=== PATIENT | female | born 1955 | race Caucasian/White ===

== ENCOUNTER → 2016-09-16 | Outpatient (CLI) | payer MEDICARE, OTHER ==
[~2016-09-16] MED LIST: ASPIRIN 325MG325 MG PO; CALTRATE 600 +1 EAC1 PO; ENDUR-ACIN500 MG PO; ENSURE LIQUID237 ML PO; ENSURE ORIGINA237 ML PO; ICLUSIG15 MG PO; K-DUR TAB 20 M20 MEQ PO; LEVAQUIN500 MG PO; LISINOPRIL40 MG PO; MAG-OX 400 TAB400 MG PO; MEGACE SUSP40 MG/M1 PO; METOPROLOL SUCC25 MG PO; NORVASC 5 MG TAB5 MG PO; PROAIR HFA8.5 GM INH; SERTRALINE HCL100 MG PO; TASIGNA200 MG PO; TENORMIN 25 MG25 MG PO; TYLENOL 325MG325 MG PO; VITAMIN D 11000 UNIT PO; ZOVIRAX 200 MG200 MG PO
[2016-09-16 12:06] LABS: HEMOGLOBIN 8.8 gm/dl (12.3-15.3)
== END ==
LOC: EROP 11:01
PROVIDERS: Internal Medicine Hematology & Oncology
DX: C92.10 Chronic myeloid leukemia, BCR/ABL-positive, not having achieved remission (principal); D64.9 Anemia, unspecified; Z88.0 Allergy status to penicillin
CPT/HCPCS: 85014; 85018; 85049

== ENCOUNTER → 2016-09-21 | Outpatient (CLI) | payer MEDICARE, OTHER ==
[~2016-09-21] VITALS: Ht 162.6 cm; Wt 50.3 kg
[2016-09-21 11:50] LABS: HEMOGLOBIN 7.3 gm/dl (12.3-15.3)
== END ==
LOC: OPSV 11:09
PROVIDERS: Internal Medicine Hematology & Oncology
DX: D64.9 Anemia, unspecified (principal); Z88.0 Allergy status to penicillin
CPT/HCPCS: 36415; 36430; 36591; 36592; 85014; 85018; 85049; 86850; 86900; 86901; 86920; 96374; 96375; J1940; J7050; P9037; P9040; Q0163

== ENCOUNTER → 2016-10-01 | Outpatient (CLI) | payer MEDICARE, OTHER ==
[~2016-10-01] VITALS: Ht 162.6 cm; Wt 50.3 kg
[2016-10-01 12:39] LABS: HEMOGLOBIN 7.6 gm/dl (12.3-15.3)
== END ==
LOC: OPSV 11:37
PROVIDERS: Internal Medicine Hematology & Oncology
DX: D64.9 Anemia, unspecified (principal); C92.10 Chronic myeloid leukemia, BCR/ABL-positive, not having achieved remission
CPT/HCPCS: 36430; 36592; 85014; 85018; 85025; 85049; 86850; 86900; 86901; 86920; 96374; J1940; J7050; P9040; Q0163

== ENCOUNTER → 2016-11-08 | Outpatient (CLI) | payer MEDICARE, OTHER ==
[~2016-11-08] VITALS: Ht 162.6 cm; Wt 50.3 kg
== END ==
LOC: OPSV 14:24
DX: C92.10 Chronic myeloid leukemia, BCR/ABL-positive, not having achieved remission (principal)
CPT/HCPCS: 36430; 36592; 85007; 85027; 86850; 86900; 86901; 86920; 96374; 96375; J1940; J7050; P9037; P9040; Q0163

== ENCOUNTER 2016-11-09 00:47 | Emergency (ER) | payer MEDICARE, OTHER ==
[~2016-11-09 00:47] MED LIST changes: -ENSURE LIQUID237 ML PO; -ENSURE ORIGINA237 ML PO; -ICLUSIG15 MG PO; -K-DUR TAB 20 M20 MEQ PO; -LEVAQUIN500 MG PO; -MAG-OX 400 TAB400 MG PO; -MEGACE SUSP40 MG/M1 PO; -METOPROLOL SUCC25 MG PO; -PROAIR HFA8.5 GM INH; -SERTRALINE HCL100 MG PO; -TYLENOL 325MG325 MG PO; -ZOVIRAX 200 MG200 MG PO
[2016-11-09 03:54] LABS: BUN/CREATININE RATIO 14 (0-10)
[2016-11-09 03:55] LABS: HEMOGLOBIN 8.5 gm/dl (12.3-15.3); RED BLOOD COUNT 2.88 M/UL (4.00-5.10); WHITE BLOOD COUNT 56.9 K/UL (4.5-11.0)
[2017-03-10] MEDS ORDERED: MAG-OX 400 TAB400 MG PO (01:50)
[2017-03-10] MEDS ORDERED: ZOVIRAX 200 MG200 MG PO (01:51)
[2017-03-10] MEDS ORDERED: METOPROLOL SUCC25 MG PO (01:51)
[2017-03-10] MEDS ORDERED: SERTRALINE HCL100 MG PO (01:51)
[2017-03-10] MEDS ORDERED: K-DUR TAB 20 M20 MEQ PO (01:52)
[2017-03-10] MEDS ORDERED: ICLUSIG15 MG PO (02:38)
[2017-03-12] MEDS ORDERED: MEGACE SUSP40 MG/M1 PO (14:59)
[2017-03-12] MEDS ORDERED: ENSURE LIQUID237 ML PO (15:00)
[2017-03-25] MEDS ORDERED: PROAIR HFA8.5 GM INH (22:36)
[2017-03-27] MEDS ORDERED: ENSURE ORIGINA237 ML PO (12:49)
[2017-03-27] MEDS ORDERED: LEVAQUIN500 MG PO (12:51)
[2017-03-27] MEDS ORDERED: TYLENOL 325MG325 MG PO (12:53)
== END 2016-11-09 04:53 | disposition other institution (70) ==
LOC: ER1 00:47
PROVIDERS: Family Medicine
DX: S06.6X0A Traumatic subarachnoid hemorrhage without loss of consciousness, initial encounter (principal); S06.4X0A Epidural hemorrhage without loss of consciousness, initial encounter; S02.32XA Fracture of orbital floor, left side, initial encounter for closed fracture; S02.40DA Maxillary fracture, left side, initial encounter for closed fracture; S50.312A Abrasion of left elbow, initial encounter; C92.10 Chronic myeloid leukemia, BCR/ABL-positive, not having achieved remission; D64.9 Anemia, unspecified; E87.6 Hypokalemia; Z88.0 Allergy status to penicillin; W18.11XA Fall from or off toilet without subsequent striking against object, initial encounter
CPT/HCPCS: 36415; 70450; 70486; 80053; 85007; 85027; 85610; 93005; 99285

== ENCOUNTER → 2016-11-23 | Outpatient (CLI) | payer MEDICARE, OTHER ==
[~2016-11-23] VITALS: Ht 162.6 cm; Wt 50.3 kg
[~2016-11-23] MED LIST changes: +ENSURE LIQUID237 ML PO; +ENSURE ORIGINA237 ML PO; +ICLUSIG15 MG PO; +K-DUR TAB 20 M20 MEQ PO; +LEVAQUIN500 MG PO; +MAG-OX 400 TAB400 MG PO; +MEGACE SUSP40 MG/M1 PO; +METOPROLOL SUCC25 MG PO; +PROAIR HFA8.5 GM INH; +SERTRALINE HCL100 MG PO; +TYLENOL 325MG325 MG PO; +ZOVIRAX 200 MG200 MG PO
== END ==
LOC: OPSV 09:46
DX: C92.10 Chronic myeloid leukemia, BCR/ABL-positive, not having achieved remission (principal); D64.9 Anemia, unspecified; Z01.89 Encounter for other specified special examinations; Z45.2 Encounter for adjustment and management of vascular access device
CPT/HCPCS: 96374; J2997

== ENCOUNTER → 2016-11-27 | Outpatient (CLI) | payer MEDICARE, OTHER ==
[2016-11-27 11:10] LABS: HEMOGLOBIN 7.5 gm/dl (12.3-15.3); RED BLOOD COUNT 2.71 M/UL (4.00-5.10)
[2016-11-27 11:11] LABS: WHITE BLOOD COUNT 0.5 K/UL (4.5-11.0)
== END ==
LOC: LAB 10:04
PROVIDERS: Internal Medicine Hematology & Oncology
DX: C92.10 Chronic myeloid leukemia, BCR/ABL-positive, not having achieved remission (principal)
CPT/HCPCS: 36592; 85025; 86850; 86900; 86901; 86920; P9040

== ENCOUNTER → 2016-11-28 | Outpatient (CLI) | payer MEDICARE, OTHER ==
[~2016-11-28] VITALS: Ht 162.6 cm; Wt 50.3 kg
== END ==
LOC: OPSV 09:00
DX: D64.9 Anemia, unspecified (principal)
CPT/HCPCS: 36430; 96375; J7050; P9040; Q0163

== ENCOUNTER → 2016-12-18 | Outpatient (CLI) | payer MEDICARE, OTHER ==
[~2016-12-18] VITALS: Ht 162.6 cm; Wt 50.3 kg
[2016-12-18 09:37] LABS: HEMOGLOBIN 6.7 gm/dl (12.3-15.3)
== END ==
LOC: OPSV 09:07
PROVIDERS: Internal Medicine Hematology & Oncology
DX: D64.9 Anemia, unspecified (principal)
CPT/HCPCS: 36430; 36592; 85014; 85018; 85049; 86850; 86900; 86901; 86920; 96374; J1940; J7050; P9016; Q0163

== ENCOUNTER → 2016-12-21 | Outpatient (CLI) | payer MEDICARE, OTHER | LOC: EXRD 11:05 | DX: R09.02 Hypoxemia (principal); J90 Pleural effusion, not elsewhere classified; R91.8 Other nonspecific abnormal finding of lung field; Z45.2 Encounter for adjustment and management of vascular access device | CPT/HCPCS: 71020 ==

== ENCOUNTER → 2017-01-01 | Outpatient (CLI) | payer MEDICARE ==
[~2017-01-01] VITALS: Ht 162.6 cm; Wt 50.3 kg
== END ==
LOC: OPSV 08:26
DX: C92.10 Chronic myeloid leukemia, BCR/ABL-positive, not having achieved remission (principal); D64.9 Anemia, unspecified
CPT/HCPCS: 36430; 85025; 86850; 86900; 86901; 86920; 96374; J1642; J1940; J7050; P9040; Q0163

== ENCOUNTER 2017-01-10 14:06 | Outpatient (CLI) | payer MEDICARE, OTHER ==
[~2017-01-10] VITALS: Ht 162.6 cm; Wt 50.3 kg
[~2017-01-10 14:06] MED LIST changes: -ENSURE LIQUID237 ML PO; -ENSURE ORIGINA237 ML PO; -ICLUSIG15 MG PO; -K-DUR TAB 20 M20 MEQ PO; -LEVAQUIN500 MG PO; -MAG-OX 400 TAB400 MG PO; -MEGACE SUSP40 MG/M1 PO; -METOPROLOL SUCC25 MG PO; -PROAIR HFA8.5 GM INH; -SERTRALINE HCL100 MG PO; -TYLENOL 325MG325 MG PO; -ZOVIRAX 200 MG200 MG PO
[2017-01-10 14:55] LABS: HEMOGLOBIN 7.4 gm/dl (12.3-15.3); RED BLOOD COUNT 2.48 M/UL (4.00-5.10)
[2017-01-10 14:57] LABS: WHITE BLOOD COUNT 0.8 K/UL (4.5-11.0)
[2017-03-10] MEDS ORDERED: MAG-OX 400 TAB400 MG PO (01:50)
[2017-03-10] MEDS ORDERED: SERTRALINE HCL100 MG PO (01:51)
[2017-03-10] MEDS ORDERED: METOPROLOL SUCC25 MG PO (01:51)
[2017-03-10] MEDS ORDERED: ZOVIRAX 200 MG200 MG PO (01:51)
[2017-03-10] MEDS ORDERED: K-DUR TAB 20 M20 MEQ PO (01:52)
[2017-03-10] MEDS ORDERED: ICLUSIG15 MG PO (02:38)
[2017-03-12] MEDS ORDERED: MEGACE SUSP40 MG/M1 PO (14:59)
[2017-03-12] MEDS ORDERED: ENSURE LIQUID237 ML PO (15:00)
[2017-03-25] MEDS ORDERED: PROAIR HFA8.5 GM INH (22:36)
[2017-03-27] MEDS ORDERED: ENSURE ORIGINA237 ML PO (12:49)
[2017-03-27] MEDS ORDERED: LEVAQUIN500 MG PO (12:51)
[2017-03-27] MEDS ORDERED: TYLENOL 325MG325 MG PO (12:53)
== END 2017-01-11 00:28 | disposition home or self-care (01) ==
LOC: OPSV 14:06 → MED SURG 4 18:30 → OPSV 01-11 00:28
PROVIDERS: Internal Medicine Hematology & Oncology
DX: C92.10 Chronic myeloid leukemia, BCR/ABL-positive, not having achieved remission (principal); D64.9 Anemia, unspecified
CPT/HCPCS: 36430; 36592; 85025; 86850; 86900; 86901; 86920; 96374; J1642; J1940; J7050; P9040; Q0163

== ENCOUNTER → 2017-04-02 | Outpatient (CLI) | payer MEDICARE ==
[~2017-04-02] VITALS: Ht 162.6 cm; Wt 50.3 kg
[~2017-04-02] MED LIST changes: +ENSURE LIQUID237 ML PO; +ENSURE ORIGINA237 ML PO; +ICLUSIG15 MG PO; +K-DUR TAB 20 M20 MEQ PO; +LEVAQUIN500 MG PO; +MAG-OX 400 TAB400 MG PO; +MEGACE SUSP40 MG/M1 PO; +METOPROLOL SUCC25 MG PO; +PROAIR HFA8.5 GM INH; +SERTRALINE HCL100 MG PO; +TYLENOL 325MG325 MG PO; +ZOVIRAX 200 MG200 MG PO
[2017-04-02 09:59] LABS: HEMOGLOBIN 8.8 gm/dl (12.3-15.3)
== END ==
LOC: OPSV 08:30
PROVIDERS: Internal Medicine Hematology & Oncology
DX: C92.10 Chronic myeloid leukemia, BCR/ABL-positive, not having achieved remission (principal); D64.9 Anemia, unspecified
CPT/HCPCS: 36430; 36592; 85014; 85018; 85049; 86850; 86900; 86901; J7050; P9037; Q0163

== ENCOUNTER → 2017-04-05 | Outpatient (CLI) | payer MEDICARE ==
[~2017-04-05] VITALS: Ht 162.6 cm; Wt 50.3 kg
[2017-04-05 09:33] LABS: HEMOGLOBIN 6.8 gm/dl (12.3-15.3)
== END ==
LOC: OPSV 08:30
PROVIDERS: Internal Medicine Hematology & Oncology
DX: C92.10 Chronic myeloid leukemia, BCR/ABL-positive, not having achieved remission (principal); D64.9 Anemia, unspecified
CPT/HCPCS: 36430; 36592; 85014; 85018; 85049; 86850; 86900; 86901; 86920; J7050; P9037; P9040; Q0163